=== PATIENT | female | born 1995 ===

== ENCOUNTER 2016-11-27 14:33 | Emergency (ER) | payer SELFPAY ==
[2016-11-27 15:27] VITALS: BP 125/74; PULSE 81; RESP 18; TEMP 98.4; O2SAT 100
--- NOTE | 2016-11-27 17:01 | ED PDOC ---
HPI: CCC, URI, Sore Throat Time Seen by Provider: 11/27/16 15:43 Chief Complaint (Nursing): Fever Chief Complaint (Provider): Sore Throat/Fever History Per: Patient History/Exam Limitations: no limitations Onset/Duration Of Symptoms: Days (x7) Current Symptoms Are (Timing): Still Present Location Of Pain: Throat Additional Complaint(s): Tegan Chavez is a 21 year old female that presents to the ED with a chief complaint of a sore throat that she has been experiencing for the past week, along with a tactile fever that she did not measure at home. Patient reports that she had a sore throat three weeks ago as well, and that she was seen by her PMD and given antibiotics, which resolved her symptoms. Past Medical History Reviewed: Historical Data, Nursing Documentation, Vital Signs Vital Signs: Last Vital Signs Temp 98.4 F 11/27/16 15:24 Pulse 81 11/27/16 15:24 Resp 18 11/27/16 15:24 BP 125/74 11/27/16 15:24 Pulse Ox 100 11/27/16 17:01 - Family History Family History: States: Unknown Family Hx - Home Medications Home Medications: Ambulatory Orders Medication Instructions Recorded Fexofenadine/Pseudoephedrine 1 each PO BID PRN #12 tab.er.12h 11/27/16 [Opal-D 12 Hour Tablet] Prednisone 50 mg PO ONCE #1 tablet 11/27/16 - Allergies Allergies/Adverse Reactions: Allergies Allergy/AdvReac Type Severity Reaction Status Date / Time No Known Allergies Allergy Verified 11/27/16 15:24 Review of Systems Constitutional: Positive for: Fever ENT: Positive for: Throat Pain (sore throat) Physical Exam - Reviewed Nursing Documentation Reviewed: Yes Vital Signs Reviewed: Yes - Physical Exam Appears: Positive for: Non-toxic, No Acute Distress Head Exam: Positive for: ATRAUMATIC, NORMOCEPHALIC Skin: Positive for: Normal Color, Warm Eye Exam: Positive for: Normal appearance ENT: Negative for: Normal ENT Inspection (slight post-nasal drip) Cardiovascular/Chest: Positive for: Regular Rate, Rhythm. Negative for: Murmur Respiratory: Positive for: Normal Breath Sounds. Negative for: Wheezing Neurologic/Psych: Positive for: Alert, Oriented. Negative for: Motor/Sensory Deficits - ECG O2 Sat by Pulse Oximetry: 100 (RA) Pulse Ox Interpretation: Normal Medical Decision Making Medical Decision Making: Impression: Pharyngitis Plan: * Throat Culture * Reevaluation Patient has pharyngitis, given Rx for Opal-D and Prednisone. Patient is stable for discharge home. Scribe Attestation: Documented by Nicolasa Chavez, acting as a scribe for Suri Angeles PA-C. Provider Scribe Attestation: All medical record entries made by the Scribe were at my direction and personally dictated by me. I have reviewed the chart and agree that the record accurately reflects my personal performance of the history, physical exam, medical decision making, and the department course for this patient. I have also personally directed, reviewed, and agree with the discharge instructions and disposition. Disposition - Clinical Impression Clinical Impression: Pharyngitis - Disposition Referrals: [facility] [Outside] [facility] [Outside] Disposition: Routine/Home Disposition Time: 16:56 Condition: GOOD Prescriptions: Fexofenadine/Pseudoephedrine [Opal-D 12 Hour Tablet] 1 each PO BID PRN #12 tab.er.12h PRN Reason: Cough And Congestion Prednisone 50 mg PO ONCE #1 tablet Instructions: Pharyngitis (ED) Print Language: EGYPTIAN
== END 2016-11-27 17:04 | disposition home or self-care (01) ==
LOC: H.ER 14:33
DX: J02.9 Acute pharyngitis, unspecified (principal); R50.9 Fever, unspecified